=== PATIENT | female | born 1995 | race Caucasian/White ===

== ENCOUNTER 2019-08-08 12:33 | Emergency (ER) | payer BC ==
[2019-08-08 12:43] VITALS: TEMP 98.3
--- NOTE | 2019-08-08 13:32 | ED ---
SOB HPI - General Chief Complaint: Shortness of Breath Stated Complaint: poss blood clot in lung Time Seen by Provider: 08/08/19 12:47 Source: patient, family Mode of arrival: ambulatory Limitations: no limitations - History of Present Illness Initial Comments: Patient is a 23-year-old female without significant past medical history presenting to the emergency department with a chief complaint of shortness of breath. She states a gradual increase in shortness of breath over the last several days. She reports increasing fatigue today and was evaluated in an urgent care who advised to come to the ED for further evaluation. Patient does report dyspnea on exertion. Denies any night sweats fevers or chills. Denies any coughing, hemoptysis or hematemesis. Denies any chest pain, back pain, headaches, blurry vision one-sided weakness or paresthesias. She denies wheezing. Denies taking any medication to alleviate the symptoms. No history of asthma or smoking. Patient denies any recent exposure to hazardous chemicals. Denies one-sided leg swelling. Patient does take control. Patient reports the chance or or low because she is on control and not sexually active at the moment. - Related Data Home Medications Medication Instructions Recorded Confirmed [place] 1.5/30 Control 1 tab PO DAILY 08/08/19 08/08/19 Allergies Allergy/AdvReac Type Severity Reaction Status Date / Time No Known Allergies Allergy Verified 08/08/19 15:20 Review of Systems ROS Statement: Those systems with pertinent positive or pertinent negative responses have been documented in the HPI. ROS Other: All systems not noted in ROS Statement are negative. Past Medical History Past Medical History: No Reported History History of Any Multi-Drug Resistant Organisms: None Reported Past Surgical History: No Surgical Hx Reported Past Psychological History: Anxiety Smoking Status: Never smoker Past Alcohol Use History: None Reported Past Drug Use History: None Reported General Exam Limitations: no limitations General appearance: alert, in no apparent distress Head exam: Present: atraumatic, normocephalic, normal inspection Eye exam: Present: normal appearance, PERRL, EOMI Pupils: Present: normal accommodation ENT exam: Present: normal exam, normal oropharynx, mucous membranes moist, TM's normal bilaterally, normal external ear exam Neck exam: Present: normal inspection, full ROM Respiratory exam: Present: normal lung sounds bilaterally. Absent: respiratory distress, wheezes, rales, rhonchi, stridor, chest wall tenderness, accessory muscle use, decreased breath sounds, prolonged expiratory Cardiovascular Exam: Present: regular rate, normal rhythm, normal heart sounds. Absent: systolic murmur, diastolic murmur Extremities exam: Present: normal inspection, full ROM, normal capillary refill, other (+2 ulnar and radial pulses bilaterally. +2 dorsalis pedis and posterior tibial bilaterally.). Absent: pedal edema Back exam: Present: normal inspection, full ROM Neurological exam: Present: alert, oriented X3, CN II-XII intact, normal gait Psychiatric exam: Present: normal affect, normal mood Skin exam: Present: warm, dry, intact, normal color Course Vital Signs 08/08/19 08/08/19 12:39 14:01 Temperature 98.3 F Pulse Rate 97 Respiratory 18 16 Rate Blood Pressure 124/78 O2 Sat by Pulse 99 Oximetry Medical Decision Making - Medical Decision Making Patient is a 23-year-old female presenting to the emergency department with a chief complaint of shortness of breath. Physical examination is completely unremarkable. No signs of wheezing rhonchi or acute respiratory distress. No abnormal heart sounds. Patient's vitals are stable. Oxygen saturation is well. Chest x-ray is unremarkable. D-dimer positive. CT of chest obtained. No signs of a pulmonary embolism. EKG shows normal sinus rhythm without any ST changes. Patient advised to follow-up with primary care. Strict return parame ters were thoroughly discussed with patient was understanding and agreeable. Case discussed with physician. - Lab Data Result diagrams: 08/08/19 13:41 08/08/19 13:41 Lab Results 08/08/19 08/08/19 08/08/19 Range/Units 13:41 13:41 13:41 WBC 3.8 (3.8-10.6) k/uL RBC 5.09 (3.80-5.40) m/uL Hgb 12.8 (11.4-16.0) gm/dL Hct 40.6 (34.0-46.0) % MCV 79.8 L (80.0-100.0) fL MCH 25.1 (25.0-35.0) pg MCHC 31.4 (31.0-37.0) g/dL RDW 16.1 H (11.5-15.5) % Plt Count 143 L (150-450) k/uL Neutrophils % (Manual) 55 % Lymphocytes % (Manual) 41 % Monocytes % (Manual) 4 % Neutrophils # (Manual) 2.09 (1.3-7.7) k/uL Lymphocytes # (Manual) 1.56 (1.0-4.8) k/uL Monocytes # (Manual) 0.15 (0-1.0) k/uL Nucleated RBCs 0 (0-0) /100 WBC Differential Comment P Manual Slide Review Performed Reactive Lymphocytes Present Hypochromasia Slight Anisocytosis Slight D-Dimer 3.14 H (<0.60) mg/L FEU Sodium 136 L (137-145) mmol/L Potassium 4.1 (3.5-5.1) mmol/L Chloride 103 (98-107) mmol/L Carbon Dioxide 24 (22-30) mmol/L Anion Gap 9 mmol/L BUN 10 (7-17) mg/dL Creatinine 0.73 (0.52-1.04) mg/dL Est GFR (CKD-EPI)AfAm >90 (>60 ml/min/1.73 sqM) Est GFR (CKD-EPI)NonAf >90 (>60 ml/min/1.73 sqM) Glucose 90 (74-99) mg/dL Calcium 9.2 (8.4-10.2) mg/dL Total Bilirubin 0.6 (0.2-1.3) mg/dL AST 46 H (14-36) U/L ALT 46 H (4-34) U/L Alkaline Phosphatase 54 (38-126) U/L Total Protein 7.6 (6.3-8.2) g/dL Albumin 4.2 (3.5-5.0) g/dL - EKG Data EKG Comments: Sinus rhythm, no ST changes, Ventricular rate 90, OK interval 1:30, QRS duration 78, QTC 428. Disposition Clinical Impression: Shortness of breath Disposition: HOME SELF-CARE Condition: Stable Instructions (If sedation given, give patient instructions): Shortness of Breath (ED) Additional Instructions: Please follow up with primary care. Return to emergency department if symptoms worsen. Is patient prescribed a controlled substance at d/c from ED?: No Referrals: Noe Hensley DO [Primary Care Provider] - 1-2 days Time of Disposition: 16:23
[2019-08-08 14:02] VITALS: RESP 16
--- NOTE | 2019-08-08 14:05 | XR ---
EXAMINATION TYPE: XR chest 2V DATE OF EXAM: 08/08/2019 COMPARISON: NONE TECHNIQUE: PA and lateral views submitted. HISTORY: Difficulty breathing FINDINGS: The lungs are clear and there is no pneumothorax, pleural effusion, or focal pneumonia. Heart size normal. No overt failure. IMPRESSION: 1. No acute process.
[2019-08-08 14:19] LABS: ALT 46 U/L (4-34); AST 46 U/L (14-36); African American GFR (CKD) >90 (>60 ml/min/1.73 sqM); Albumin 4.2 g/dL (3.5-5.0); Alkaline Phosphatase 54 U/L (38-126); Anion Gap 9 mmol/L; Blood Urea Nitrogen 10 mg/dL (7-17); Calcium 9.2 mg/dL (8.4-10.2); Carbon Dioxide 24 mmol/L (22-30); Chloride 103 mmol/L (98-107); Glucose 90 mg/dL (74-99); Non-African American GFR(CKD) >90 (>60 ml/min/1.73 sqM); Potassium 4.1 mmol/L (3.5-5.1); Sodium 136 mmol/L (137-145); Total Bilirubin 0.6 mg/dL (0.2-1.3); Total Protein 7.6 g/dL (6.3-8.2)
[2019-08-08 14:23] LABS: Anisocytosis Slight; HCT 40.6 % (34.0-46.0); HGB 12.8 gm/dL (11.4-16.0); Hypochromasia Slight; MCH 25.1 pg (25.0-35.0); MCHC 31.4 g/dL (31.0-37.0); MCV 79.8 fL (80.0-100.0); Mean Platelet Volume 9.1; Platelet Count 143 k/uL (150-450); RBC 5.09 m/uL (3.80-5.40); RDW 16.1 % (11.5-15.5); WBC 3.8 k/uL (3.8-10.6)
[2019-08-08 15:29] LABS: Lymphocytes # (M) 1.56 k/uL (1.0-4.8); Monocytes # (M) 0.15 k/uL (0-1.0); Neutrophils # (M) 2.09 k/uL (1.3-7.7); Neutrophils % (M) 55 %; Nucleated Red Blood Cells 0 /100 WBC (0-0); Reactive Lymphocytes Present; Total Cells Counted 100
--- NOTE | 2019-08-08 15:50 | CT ---
CT CHEST FOR PULMONARY EMBOLISM. EXAMINATION TYPE: CT chest angio for PE DATE OF EXAM: 08/08/2019 INDICATION: Shortness of breath. CT DLP: 258.8 mGycm, Automated exposure control for dose reduction was used. CONTRAST: Patient injected with 100 mL of Isovue 370. COMPARISON: None TECHNIQUE: CT of the chest is performed on a spiral scan at 2 mm thick sections. Study is performed with intravenous contrast timed for evaluation for pulmonary embolism. This will limit additional po rtions of the evaluation. 3-D MIP images reconstructed by the technologist are reviewed on the compu ter in the coronal and sagittal planes. FINDINGS: No persistent filling defects are evident to suggest an acute pulmonary embolism. No mediastinal or hilar adenopathy enlarged by CT criteria is evident. The ascending aorta diameter at the level of the main pulmonary artery is 2.5 cm. The main pulmonary artery diameter at the bifur cation is 2.2 cm. Lung windows are clear. Limited CT section through the upper abdomen are unremarkable. IMPRESSIONS: 1. No acute pulmonary embolism.
[2019-08-08 16:35] VITALS: BP 118/76; PULSE 70
== END 2019-08-08 16:34 | disposition home or self-care (01) ==
LOC: EC 12:33
DX: R06.02 Shortness of breath (principal); R53.83 Other fatigue; R06.09 Other forms of dyspnea; Z79.3 Long term (current) use of hormonal contraceptives
CPT/HCPCS: 36415; 93005; 85379; 80053; 85025; 71046; 71275; 99285; Q9967

== ENCOUNTER → 2019-10-18 | Outpatient (CLI) | payer BC ==
--- NOTE | 2019-10-21 07:17 | PE ---
EXAMINATION TYPE: PET CT fusion skull to thigh DATE OF EXAM: 10/18/2019 COMPARISON: CTA chest August 08, 2019. HISTORY: Lymphoma diagnosed on liver biopsy August 18, 2019. TECHNIQUE: Following the intravenous administration of 11.22 mCi of F-18 FDG, whole body images are performed from the skull base to the midthigh. Images are reviewed on the computer in the coronal, a xial, and sagittal planes. Reconstructed rotating images are created on independent workstation and reviewed on the computer. A noncontrast CT is performed in conjunction with the PET scan. SCAN: Initial Scan FINDINGS: MEAN SUV MEDIASTINUM: 0.81 MEAN SUV LIVER: 2.05 SKULL BASE AND NECK: Symmetric hypermetabolic uptake supraclavicular region corresponds to prominent brown fat axial image 47. Symmetric uptake at the focal cords presumed physiologic axial image 45. T here is similar symmetric uptake in the lateral aspect of the nasopharynx perhaps related to tonsilla r inflammation or physiologic. No suspicious hypermetabolic enlarged lymph nodes. CHEST, MEDIASTINUM, AND HILAR REGION: No suspicious hypermetabolic masses or lymph nodes. ABDOMEN AND PELVIS: Mild hepatomegaly. Remaining normal in size. Focus of hypermetabolic uptake not c learly identified. Normal excretion is seen. No suspicious hypermetabolic adenopathy. OSSEOUS STRUCTURES: No suspicious hypermetabolic uptake. OTHER CT: No suspicious incidental findings. IMPRESSION: Mild hepatomegaly without distinct suspicious focal lesion or significant focal hypermeta bolic uptake to correspond to biopsy-proven neoplasm. No suspicious metabolic adenopathy identified a bob or below the diaphragm.
== END | disposition home or self-care (01) ==
LOC: RADPETMAIN 15:05
PROVIDERS: ATTEND Internal Medicine Hematology & Oncology
DX: R16.0 Hepatomegaly, not elsewhere classified (principal); C96.Z Other specified malignant neoplasms of lymphoid, hematopoietic and related tissue
CPT/HCPCS: 78815; A9552

== ENCOUNTER 2019-10-21 06:04 | Day surgery (SDC) | payer BC ==
[2019-10-17 10:41] VITALS: BMI 19.5
[~2019-10-21 06:04] MED LIST: LACTATED RINGERS 1,000 ML IV SCH; LIDOCAINE 1% (10MG/ML) FOR IV START INTRADERMA PRN
[2019-10-21 06:36] VITALS: TEMP 98.1
[2019-10-21] MEDS ORDERED: PROPOFOL 10 MG/ML 20 ML VIAL IV ONE (07:00)
[2019-10-21] MEDS ORDERED: LIDOCAINE 2% INJ 20 MG/ML SQ ONE ×2 (07:06→07:15)
[2019-10-21 07:31] VITALS: RESP 16
[2019-10-21 07:45] VITALS: BP 115/71; PULSE 86
[2019-10-21 08:57] LABS: Basophils % (A) 0 %; Eosinophils % (A) 1 %; HCT 41.1 % (34.0-46.0); HGB 13.1 gm/dL (11.4-16.0); Lymphocytes # (A) 2.7 k/uL (1.0-4.8); Lymphocytes % (A) 48 %; MCH 24.3 pg (25.0-35.0); MCHC 31.9 g/dL (31.0-37.0); Mean Platelet Volume 7.5; Microcytosis Slight; Monocytes # (A) 0.5 k/uL (0-1.0); Monocytes % (A) 9 %; Neutrophils # (A) 2.2 k/uL (1.3-7.7); Neutrophils % (A) 40 %; Platelet Count 284 k/uL (150-450); RBC 5.39 m/uL (3.80-5.40); RDW 14.5 % (11.5-15.5); WBC 5.5 k/uL (3.8-10.6)
[2019-10-21 09:00] LABS: MCV 76.3 fL (80.0-100.0)
[2019-10-21 14:47] LABS: Reticulocyte % 0.83 % (0.10-1.80)
--- NOTE | 2019-11-18 15:07 | P.PCN ---
Date of Procedure: 10/21/19 Preoperative Diagnosis: lymphoma Postoperative Diagnosis: lymphoma Procedure(s) Performed: Bone marrow biopsy and aspirate Surgeon: Jorge Solano Estimated Blood Loss (ml): 0 IV fluids (ml): 100 Pathology: other (bone marrow biopsy and aspirate) Condition: stable Disposition: same day Description of Procedure: Local and IV sedation. Utilizing sterile technique, skin overlying the right iliac crest was prepared with betadine. After adequate sterile draping, local anesthesia with 1% lidocaine, 1 1/4 in Jamshidi needle was utilized to access the periosteum. 15ml of aspirate and 1cm core biopsy was obtained. Pt tolerated procedure well. No immediate procedure related complications.
== END 2019-10-21 08:18 | disposition home or self-care (01) ==
LOC: OR 06:04
PROVIDERS: ATTEND Internal Medicine Hematology & Oncology
DX: R10.30 Lower abdominal pain, unspecified (principal); R30.0 Dysuria; Z98.890 Other specified postprocedural states
CPT/HCPCS: 81025; 85025; 85045; 38222; J2001; J2704

== ENCOUNTER → 2021-02-17 | Outpatient (CLI) | payer BC ==
--- NOTE | 2021-02-17 15:02 | US ---
EXAMINATION TYPE: Transabdominal DATE OF EXAM: 02/17/2021 2:22 PM COMPARISON: NONE CLINICAL HISTORY: O76 Abnormal absent heart sounds. Known possible miscarriage per patient- she had a n ultrasound done in her doctor's office that showed no heart tones EXAM PERFORMED: Transvaginal (TV) and Transabdominal (TA) EXAM MEASUREMENTS: GESTATIONAL AGE / DATING Physician Established: Not yet established Dates by LMP: LMP unsure Dates by First Scan: No previous at this facility Dates by Current Scan for: No IUP visualized MATERNAL ANATOMY Uterus: 7.5 x 3.2 x 4.3 cm Right Ovary: 2.2 x 1.6 x 2.2 cm Left Ovary: 2.1 x 1.3 x 3.6 cm Post CDS / Adnexa: wnl Presence of free fluid: No Presence of corpus luteal cyst: No Presence of subchorionic bleed: No GESTATION / SURVEY IUP: No IUP seen at this time Date of LMP: Sometime in November Beta HcG (if available): Not available at this time No IUP visualized. Large complex area visualized within the cervix measuring approximately 3.3 x 1.8 x 3.0 cm extending into the endometrium. Possible arcate uterus visualized in transverse imaging IMPRESSION: There is a 3.3 cm complex, heterogeneous area within the region of the cervix without intrauterine pr egnancy visualized. These findings are nonspecific. They may represent in progress versus he matoma versus molar . Please correlate with patient's history and possible quantitative beta hCG values. Although no definite ectopic is seen, one cannot be definitively excluded.
== END | disposition home or self-care (01) ==
LOC: RADUSWWP 13:50
PROVIDERS: ATTEND Obstetrics & Gynecology
DX: O36.8310 Maternal care for abnormalities of the fetal heart rate or rhythm, first trimester, not applicable or unspecified (principal); Z3A.00 Weeks of gestation of pregnancy not specified
CPT/HCPCS: 76801; 76817

== ENCOUNTER → 2021-02-23 | Day surgery (SDC) | payer BC ==
[2021-02-21 12:40] VITALS: BMI 20.9
--- NOTE | 2021-02-22 07:34 | P.HPOB ---
History of Present Illness H&P Date: 02/23/21 Chief Complaint: Vaginal bleeding/ This patient is a pleasant 25 yr female estimated gestational age ~9 weeks (6 weeks by ultrasound) who presents for a suction D&C due to incomplete . Her history is such that she presented to me for . At that time, she had been bleeding for 3 days. Ultrasound showed an IUP, but only 6 weeks and no cardiac activity. She has continued to bleed and followup ultrasound confirms a persistent non-viable consistent with a missed . I discussed options and she would like to proceed with a suction D&C for treatment. Review of Systems Constitutional: Reports as per HPI Genitourinary: Reports abnormal vaginal bleeding, Reports Past Medical History Past Medical History: No Reported History Additional Past Medical History / Comment(s): hx elevated liver enzymes-had liver biopsy History of Any Multi-Drug Resistant Organisms: None Reported Past Surgical History: No Surgical Hx Reported Additional Past Surgical History / Comment(s): wisdom teeth removed, liver biopsy, bone biopsy Past Anesthesia/Blood Transfusion Reactions: No Reported Reaction Past Psychological History: No Psychological Hx Reported Smoking Status: Never smoker Past Alcohol Use History: None Reported Past Drug Use History: Marijuana - Past Family History Mother Family Medical History: No Reported History Medications and Allergies Home Medications Medication Instructions Recorded Confirmed Type PARoxetine HCL [Paxil] 10 mg PO 1700 02/21/21 02/21/21 History Pnv No.95/Ferrous Fum/Folic AC 1 each PO DAILY 02/21/21 02/21/21 History [ Multivitamin Tablet] Allergies Allergy/AdvReac Type Severity Reaction Status Date / Time No Known Allergies Allergy Verified 02/21/21 12:33 Exam - OBG Physical Exam Abdomen: bowel sounds normal, no diffuse tenderness, no bruit present, no guarding noted, no hepatomegaly, no splenomegaly, no mass Vulva: both: normal Vagina: normal moisture, no discharge Cervix: no lesion, no discharge Uterus: enlarged (6 weeks size) Results Serial ultrasounds show non-viable ~6 week intrauterine . Blood type is O positive. Assessment and Plan Assessment: This is a pleasant 25 yr old female estimated gestational age 6 weeks with incomplete , requesting suction D&C for treatment. I have discussed this surgery and risks: infection, bleeding, possible uterine perforation. All of the patients questions have been answered and a written consent obtained. (1) Incomplete Status: Acute Code(s): O03.4 - INCOMPLETE SPONTANEOUS WITHOUT COMPLICATION SNOMED Code(s): 499080915
[~2021-02-23] MED LIST changes: +DEXAMETHASONE SOD PHOSPHATE 4 MG/ML 1 ML VIAL IV ONE; +HYDROmorphone 0.5 MG/0.5 ML SYRINGE IVP PRN; +IBUPROFEN 200 MG TAB PO ONE; +KETOROLAC 15 MG/ML 1 ML VIAL ONE; +LIDOCAINE 1% INJ 10MG/ML (20 ML MDV) ONE; +METOCLOPRAMIDE 5 MG/ML 2 ML VIAL IVP PRN; +MIDAZOLAM 2 MG/2 ML VIAL IV PRN; +MIDAZOLAM 2 MG/2 ML VIAL ONE; +ONDANSETRON 4 MG/2 ML VIAL IVP ONE; +PROPOFOL 10 MG/ML 20 ML VIAL IV ONE; +Pre Op ABX Message 1 EACH MISC MISCELLANE ONE; +SCOPOLAMINE 1.5MG/72HR PATCH TRANSDERM ONE; +fentaNYL (PF) 50 MCG/ML 2 ML AMP ONE
--- NOTE | 2021-02-23 08:10 | P.OP ---
Date of Procedure: 02/23/21 Preoperative Diagnosis: Incomplete 6 weeks Postoperative Diagnosis: Same Procedure(s) Performed: Suction D&C Anesthesia: other (LMA) Surgeon: Ernie Thibodeaux Estimated Blood Loss (ml): 50 Urine output (ml): 75 Pathology: other (Uterine contents) Condition: stable Disposition: PACU Indications for Procedure: Please see dictated H&P for intimate details this patient's admission. Brief summary this pleasant 25-year-old 1 para 0 female estimated gestational age 6 weeks with an incomplete requesting suction D&C for treatment. Patient understands this procedure and risks including risks of infection, bleeding, possible uterine perforation. All the patient's questions are answered written consent obtained. Operative Findings: This patient had uterine contents consistent with degenerated products of conception Description of Procedure: This patient is taken the operating room where she is laid in the supine position. Subsequent undergoes general anesthesia without incident. An adequate level of anesthesia was placed in dorsal lithotomy position. She has a vaginal perineal prep and drape. Examination under anesthesia shows a mid position uterus. Some gentle degenerated products coming from the cervix. I drain the bladder for 75 mL of clear urine. Weighted speculum was placed in the posterior vagina. Anterior lip of the cervix is grabbed with an Allis clamp. Cervix is easily dilated to allow an 8 curved suction curette easily uterine cavity. Suction is applied and a large amount of tissue is removed. Multiple passes are made to no further tissue was noted. A gentle 4 quadrant curettage is then done again no further tissue was noted. With this done the procedure is ended. The Allis clamp and weighted speculum removed. All counts correct 3. There are no complications. Patient is awakened from anesthesia and taken recovery room satisfactory condition.
[2021-02-23 08:19] VITALS: TEMP 97.2
[2021-02-23 09:07] VITALS: RESP 16
[2021-02-23 09:23] VITALS: BP 116/68; PULSE 71
== END | disposition home or self-care (01) ==
LOC: OR 06:36
PROVIDERS: ATTEND Obstetrics & Gynecology
DX: O03.4 Incomplete spontaneous abortion without complication (principal); O99.341 Other mental disorders complicating pregnancy, first trimester; F32.9 Major depressive disorder, single episode, unspecified; Z3A.01 Less than 8 weeks gestation of pregnancy
CPT/HCPCS: 59812; 86900; 86901; 88305; 86850; 36415; J2250; J1100; J2405; J2001; J3010; J1885; J2704

== ENCOUNTER → 2021-05-24 | Outpatient (CLI) | payer BC | END | disposition home or self-care (01) | LOC: LABWHC1 14:45 | PROVIDERS: ATTEND Nurse Practitioner Family | DX: Z11.1 Encounter for screening for respiratory tuberculosis (principal) | CPT/HCPCS: 36415; 86480 ==

== ENCOUNTER → 2021-07-19 | Outpatient (CLI) | payer BC | END | disposition home or self-care (01) | LOC: LABWHC1 15:50 | PROVIDERS: ATTEND Obstetrics & Gynecology | DX: O03.9 Complete or unspecified spontaneous abortion without complication (principal) | CPT/HCPCS: 36415; 84702 ==